=== PATIENT | male | born 1990 | race Caucasian/White ===

== ENCOUNTER 2019-11-12 09:14 | Emergency (ER) | payer OTHER ==
[2019-11-12 09:20] VITALS: BMI 29.7
[2019-11-12] MEDS ORDERED: ACETAMINOPHEN 1000 MG/100 ML VIAL (NON FORMULARY) IVPB ONE (09:46)
[2019-11-12] MEDS ORDERED: SODIUM CHLORIDE 1,000 ML IV STA ×2 (09:46→11:26)
[2019-11-12] MEDS ORDERED: ACETAMINOPHEN INJECTION 100 ML IVPB ONE (09:51)
[2019-11-12 10:10] LABS: BASO % 0.5 % (0-2.0); EOS % 1.3 % (0-4.5); HEMATOCRIT 41.8 % (35.4-49); HEMOGLOBIN 14.6 GM/dL (11.7-16.9); LYMPH % 25.6 % (8-40); MCH 32.4 pg (25.7-33.7); MCHC 34.9 g/dl (32.0-35.9); MEAN CELL VOLUME 92.9 fl (80-96); MEAN PLT VOLUME 8.1 fl (7.5-11.1); MONO % 9.5 % (3.8-10.2); NEUT % 63.1 % (42.8-82.8); PLATELET COUNT 221 K/MM3 (134-434); RDW 12.5 % (11.9-15.9); WHITE BLOOD COUNT 5.6 K/mm3 (4.0-10.0)
--- NOTE | 2019-11-12 10:16 | PDOC ---
History of Present Illness - General Chief Complaint: Weakness Stated Complaint: HEADACHE/WEAKNESS Time Seen by Provider: 11/12/19 09:32 History Source: Patient Exam Limitations: No Limitations - History of Present Illness Initial Comments: 11/12/19 10:13 29-year-old male presents the ED with complaints of a headache for the past 3 days worsened with movement and states that have light sensitivity. Patient states was told last week he had gastritis so had stopped smoking marijuana along with drinking caffeine. Patient states his symptoms have continued and has not taken anything for the pain . Patient has no other complaints at this time. Is this a multiple visit Asthma Patient?: No Timing/Duration: constant Severity: mild Associated Symptoms: reports: headaches Past History - Travel History Traveled outside of the country in the last 30 days: No Close contact w/someone who was outside of country & ill: No - Medical History Allergies/Adverse Reactions: Allergies Allergy/AdvReac Type Severity Reaction Status Date / Time No Known Allergies Allergy Verified 11/12/19 09:20 Home Medications: Ambulatory Orders NK [No Known Home Medication] 11/12/19 COPD: No - Psycho-Social/Smoking History Patient Lives Alone: No Lives with/in: parents Smoking History: Former smoker Have you smoked in the past 12 months: Yes If you are a former smoker, when did you quit?: 10/18/19 Information on smoking cessation initiated: No - Substance Abuse Hx (Audit-C & DAST Scrn) How often the patient has a drink containing alcohol: Never Score: In Men: 4 or > Positive; In Women: 3 or > Positive: 0 Screen Result (Pos requires Nsg. Audit-10AR): Negative Review of Systems - Review of Systems Able to Perform ROS?: No Is the patient limited Polish proficient: No Constitutional: No: Symptoms Reported HEENTM: No: Symptoms Reported Respiratory: No: Symptoms reported Cardiac (ROS): No: Symptoms Reported ABD/GI: No: Symptoms Reported : No: Symptoms Reported Musculoskeletal: No: Symptoms Reported Neurological: No: Symptoms reported Endocrine: No: Symptoms Reported *Physical Exam - Vital Signs Last Vital Signs Temp Pulse Resp BP Pulse Ox 98 F 61 18 115/66 98 11/12/19 09:17 11/12/19 09:17 11/12/19 09:17 11/12/19 09:17 11/12/19 09:36 - Physical Exam General Appearance: Yes: Nourished, Appropriately Dressed. No: Apparent Distress HEENT: negative: Pale Conjunctivae Neck: positive: Supple Respiratory/Chest: positive: Lungs Clear, Normal Breath Sounds. negative: Respiratory Distress, Accessory Muscle Use Cardiovascular: positive: Regular Rhythm, Regular Rate. negative: Murmur Gastrointestinal/Abdominal: positive: Soft. negative: Tenderness Integumentary: positive: Normal Color, Warm, Moist Neurologic: positive: Motor Strength 5/5 (ambulatory) ED Treatment Course - LABORATORY CBC & Chemistry Diagram: 11/12/19 09:50 11/12/19 09:50 - Medications Given in the ED: ED Medications Discontinued Medications Generic Name Dose Route Start Last Admin Trade Name Freq PRN Reason Stop Dose Admin Acetaminophen 1,000 mg 11/12/19 09:46 11/12/19 10:04 Ofirmev Injection - IVPB 11/12/19 09:47 1,000 mg ONCE ONE Administration Medical Decision Making - Medical Decision Making 11/12/19 10:17 CC: Patient with headache with mild weakness without nausea neck pain, chest pain or shortness of breath. Patient states photosensitivity without phono sensitivity. No meds taken. Exam: Patient with normal neuro exam. Vital signs stable. Plan: Labs, IV fluids, urine, IV Tylenol reassess 11/12/19 12:31 Laboratory Tests 11/12/19 11/12/19 11/12/19 09:50 09:50 10:20 WBC 5.6 Hgb 14.6 Hct 41.8 Neutrophils % 63.1 Sodium 141 Potassium 4.6 Chloride 106 Carbon Dioxide 30 BUN 13.6 Creatinine 0.8 Est GFR (CKD-EPI)AfAm 139.91 Est GFR (CKD-EPI)NonAf 120.72 Calcium 9.6 Magnesium 2.0 Total Bilirubin 0.5 AST 16 ALT 20 Alkaline Phosphatase 78 Total Protein 7.8 Albumin 4.5 Urine Ketones Trace H Ur Leukocyte Esterase Negative Patient states feeling better after receiving medication but is also requesting a neurologist and assistance with his anxiety. I have recommended a therapist along with utilizing [employer] for progressive muscle relaxation, meditation, and other techniques to relax. Patient be discharged home with Fioricet since he had stopped caffeine approximately 5 days ago which is around the onset of his headaches. Discharge - Discharge Information Problems reviewed: Yes Clinical Impression/Diagnosis: Headache Condition: Improved Disposition: HOME - Follow up/Referral Referrals: Evan Real [Primary Care Provider] - Fritz Marsh MD [Staff Physician] - - Patient Discharge Instructions Patient Printed Discharge Instructions: DI for Headache Additional Instructions: Please follow-up with referred neurologist. Utilize Happy [employer] as discussed which has numerous techniques for relaxation. Take Fioricet as needed for discomfort follow-up also with a therapist - Post Discharge Activity
[2019-11-12 10:51] LABS: ALBUMIN 4.5 g/dl (3.4-5.0); BILIRUBIN,TOTAL 0.5 mg/dL (0.2-1); BLOOD UREA NITROGEN 13.6 mg/dL (7-18); CALCIUM 9.6 mg/dL (8.5-10.1); CREATININE 0.8 mg/dL (0.55-1.3); POTASSIUM 4.6 mmol/L (3.5-5.1); TOT PROT 7.8 g/dl (6.4-8.2)
[2019-11-12 11:11] LABS: URINE APPEARANCE CLEAR; URINE BILIRUBIN NEGATIVE (NEGATIVE); URINE COLOR YELLOW; URINE GLUCOSE (UA) NEGATIVE (NEGATIVE); URINE KETONE TRACE (NEGATIVE); URINE LEUK ESTERASE NEGATIVE (NEGATIVE); URINE NITRITE NEGATIVE (NEGATIVE); URINE PROTEIN NEGATIVE (NEGATIVE)
[2019-11-12] MEDS ORDERED: KETOROLAC TROMETHAMINE 30 MG/1 ML VIAL IVPUSH ONE (11:26)
[2019-11-12] MEDS ORDERED: KETOROLAC TROMETHAMINE 30 MG/1 ML VIAL ONE (11:27)
[2019-11-12 12:28] VITALS: BP 110/66; PULSE 70; TEMP 98.1
== END 2019-11-12 12:51 | disposition home or self-care (01) ==
LOC: JER 09:14
PROC: 3E033NZ Introduction of Analgesics, Hypnotics, Sedatives into Peripheral Vein, Percutaneous Approach (ICD-10-PCS; principal; 2019-11-12)
PROC: 3E0333Z Introduction of Anti-inflammatory into Peripheral Vein, Percutaneous Approach (ICD-10-PCS; 2019-11-12)
PROC: 3E0337Z Introduction of Electrolytic and Water Balance Substance into Peripheral Vein, Percutaneous Approach (ICD-10-PCS; 2019-11-12)
DX: R51 Headache (principal)
CPT/HCPCS: 36415; 80053; 81003; 83735; 85025; 99285-25; J0131